=== PATIENT | female | born 1985 | race Caucasian/White ===

== ENCOUNTER 2022-03-10 18:58 | Emergency (ER) | payer BC, OTHER ==
--- OUTSIDE RECORDS SUMMARY | 2022-03-10 19:01 | XMS REPORT | Continuity of Care Document ---
:1985 Author Organization [facility] t Address [address] [place] [address] Care Team Providers Name Role Phone Jessica HERMOSILLO Attending Clinician Unavailable Payers Payer Name Policy Type Policy Number Effective Date Expiration Date S [place] [employer] 6 [id number] 2021 Common Spiri t Blue Shield 00:00:00 [facility] AETNA [id number] [facility] TML GBRP C1 [id number] 2019 Common Spiri t CLAIMS 00:00:00 [facility] Problems Condition Condition Condition Status Onset Resolution Last Treating Co mments Source Name Details Category Date Date Treatment Clinician Date [id number] Menorrhagi Problem Co mmon a with Spirit irregular - [facility]I cycle [facility] Anxiety Anxiety Problem Common Spirit [facility] Current Current Problem Common every day every day Spir it smoker smoker - [facility] Depression Depression Problem C ommon Spirit [facility] Chest pain Chest pain Problem C mon Spirit - [facility] [id number] Depression Problem Co mmon with Spirit anxiety - [facility] Gastroesop GERD Problem Commo n hageal (gastroeso Spirit reflux phageal - CHI disease reflux St disease) [facility] [id number] Encounter Problem Com mon for Spirit tobacco - [facility]I use [facility] Chronic Chronic Problem Common fatigue fatigue Spirit syndrome - [facility] [id number] Primary Problem Common insomnia [facility] Chronic Other Problem Common pain chronic [facility] pain [facility] [id number] Cigarette Problem Comm on nicotine Spirit dependence - [facility] Sciatica Lumbago Problem Common with Spirit sciatica, - [facility]I left side [facility] [id number] Iron Problem Common deficiency [facility] Vitamin D Vitamin D Problem Com mon deficiency deficiency Sp miller [facility] Elevated Elevated Problem Commo n liver liver Spirit enzymes enzymes - [facility] level [facility] Seasonal Seasonal Problem Commo n allergic allergic Spirit rhinitis rhinitis, - [facility]I unspecifie [facility] Allergic Allergic Problem Commo n rhinitis rhinitis, Spiri t cause - CHI unspecifie [facility] [id number] Menorrhagi Problem Co mmon a with Spirit regular - [facility] cycle [facility] Allergies, Adverse Reactions, Alerts Allergy Allergy Status Severity Reaction(s) Onset Inactive Treating Comm ents Source Name Type Date Date Clinician trazodon trazodon Active Unknown Commo n e e [facility] Social History Social Habit Start Date Stop Date Quantity Comments Source History of Tobacco Use Co mmon [facility] Sex Assigned At Com [facility] Smoking Status Start Date Stop Date Source Never Smoker Common [facility] Current Smoker 2020-11-13 00:00:[address] [facility] Medications Ordered Filled Start Stop Current Ordering Indication Dosage Frequency Signature Comments Components Source Medication Medication Date Date Medication? Clinician (SIG) Name Name Josy Ferris 2020- No [place] 1 tablet Com 08-27 Spirit 00:00: 00:00 - CHI 00 :00 [facility] Loratadine Loratadine 2020-0 No 1{table QD Loratadine 10 MG 10 MG 02-15 t} 10 MG 00:00: 00 Loratadine Loratadine 2019-0 No 1{table QD Loratadine 10 MG 10 MG 02-15 t} 10 MG 00:00: 00 Loratadine Loratadine 2019-0 No 1{table QD Loratadine 10 MG 10 MG 02-15 t} 10 MG 00:00: 00 Loratadine Loratadine 2020-0 No 1{table QD Loratadine 10 MG 10 MG 02-15 t} 10 MG 00:00: 00 Loratadine Loratadine 2019-0 No 1{table QD Loratadine 10 MG 10 MG 02-15 t} 10 MG 00:00: 00 Loratadine Loratadine 2019-0 No 1{table QD Loratadine 10 MG 10 MG 02-15 t} 10 MG 00:00: 00 Loratadine Loratadine 2019-0 No 1{table QD Loratadine 10 MG 10 MG 02-15 t} 10 MG 00:00: 00 Loratadine Loratadine 2019-0 No 1{table QD Loratadine 10 MG 10 MG 02-15 t} 10 MG 00:00: 00 Loratadine Loratadine 2019-0 No 1{table QD Loratadine 10 MG 10 MG 02-15 t} 10 MG 00:00: 00 Loratadine Loratadine 2019-0 2020- No [place] 1 tablet Common 02-15 Spirit 00:00: 00:00 - [facility]I 00 :00 [facility] Flonase Flonase 2019- Yes Na [place] 2 spray in Common 0-04 each Spirit 00:00: nostril - CHI 00 [facility] Amoxicillin Amoxicillin Yes Na [place] 1 capsule Common [facility] Ferrous Ferrous Yes Na [place] 2 tablet Co mmon Sulfate Sulfate [facility] Pantoprazol Pantoprazol Yes Na [place] 1 tablet Common e Sodium e Sodium [facility] Lexapro Lexapro Yes Na [place] 1 tablet Co mmon [facility] PredniSONE PredniSONE Yes Na [place] 2 tablets Common dailyx 5 [facility] days then [facility] [address] daily x 5 [facility] Lexapro Lexapro Yes Na [place] 1 tablet Co mmon [facility] Pantoprazol Pantoprazol Yes Na [place] 1 tablet Common e Sodium e Sodium [facility] Pantoprazol Pantoprazol No 1{table QD Pantoprazo e Sodium 20 e Sodium 20 t} le Sodium 20 Cetirizine Cetirizine No 1{table QD Cetirizine HCl 10 MG HCl 10 MG t} HCl 10 MG Amoxicillin Amoxicillin No 1{capsu BID Amoxicilli 500 MG 500 MG le} n 500 MG Pantoprazol Pantoprazol No 1{table QD Pantoprazo e Sodium 40 e Sodium 40 t} le Sodium MG MG 40 MG predniSONE predniSONE No predniSONE 20 MG 20 MG 20 MG Lexapro 5 Lexapro 5 No 1{table QD Lexapro 5 MG MG t} MG Blisovi FE Blisovi FE No 1{table QD Blisovi FE 02/26-02/26 1-20 t} 02/26 1-20 MG-MCG MG-MCG MG-MCG Flonase 50 Flonase 50 No 2{spray QD Flonase 50 MCG/ACT MCG/ACT _in_eac MCG/ACT h_nostr il} Lexapro 10 Lexapro 10 No 1{table QD Lexapro 10 MG MG t} MG Pantoprazol Pantoprazol No 1{table QD Pantoprazo e Sodium 20 e Sodium 20 t} le Sodium 20 Flonase 50 Flonase 50 No 2{spray QD Flonase 50 MCG/ACT MCG/ACT _in_eac MCG/ACT h_nostr il} Amoxicillin Amoxicillin No 1{capsu BID Amoxicilli 500 MG 500 MG le} n 500 MG Lexapro 10 Lexapro 10 No 1{table QD Lexapro 10 MG MG t} MG Pantoprazol Pantoprazol No 1{table QD Pantoprazo e Sodium 40 e Sodium 40 t} le Sodium MG MG 40 MG Cetirizine Cetirizine No 1{table QD Cetirizine HCl 10 MG HCl 10 MG t} HCl 10 MG Blisovi FE Blisovi FE No 1{table QD Blisovi FE 02/26-02/26 1-20 t} 02/26 1-20 MG-MCG MG-MCG MG-MCG predniSONE predniSONE No predniSONE 20 MG 20 MG 20 MG Lexapro 5 Lexapro 5 No 1{table QD Lexapro 5 MG MG t} MG Pantoprazol Pantoprazol No 1{table QD Pantoprazo e Sodium 20 e Sodium 20 t} le Sodium 20 Flonase 50 Flonase 50 No 2{spray QD Flonase 50 MCG/ACT MCG/ACT _in_eac MCG/ACT h_nostr il} Amoxicillin Amoxicillin No 1{capsu BID Amoxicilli 500 MG 500 MG le} n 500 MG Lexapro 10 Lexapro 10 No 1{table QD Lexapro 10 MG MG t} MG Pantoprazol Pantoprazol No 1{table QD Pantoprazo e Sodium 40 e Sodium 40 t} le Sodium MG MG 40 MG Cetirizine Cetirizine No 1{table QD Cetirizine HCl 10 MG HCl 10 MG t} HCl 10 MG Blisovi FE Blisovi FE No 1{table QD Blisovi FE 02/26-02/26 1-20 t} 02/26 1-20 MG-MCG MG-MCG MG-MCG predniSONE predniSONE No predniSONE 20 MG 20 MG 20 MG Lexapro 5 Lexapro 5 No 1{table QD Lexapro 5 MG MG t} MG Pantoprazol Pantoprazol No 1{table QD Pantoprazo e Sodium 40 e Sodium 40 t} le Sodium MG MG 40 MG Lexapro 5 Lexapro 5 No 1{table QD Lexapro 5 MG MG t} MG Pantoprazol Pantoprazol No 1{table QD Pantoprazo e Sodium 20 e Sodium 20 t} le Sodium 20 predniSONE predniSONE No predniSONE 20 MG 20 MG 20 MG Amoxicillin Amoxicillin No 1{capsu BID Amoxicilli 500 MG 500 MG le} n 500 MG Blisovi FE Blisovi FE No 1{table QD Blisovi FE 02/26-20 02/26 1-20 t} 02/26 1-20 MG-MCG MG-MCG MG-MCG Flonase 50 Flonase 50 No 2{spray QD Flonase 50 MCG/ACT MCG/ACT _in_eac MCG/ACT h_nostr il} Cetirizine Cetirizine No 1{table QD Cetirizine HCl 10 MG HCl 10 MG t} HCl 10 MG Lexapro 10 Lexapro 10 No 1{table QD Lexapro 10 MG MG t} MG Pantoprazol Pantoprazol No 1{table QD Pantoprazo e Sodium 20 e Sodium 20 t} le Sodium 20 Cetirizine Cetirizine No 1{table QD Cetirizine HCl 10 MG HCl 10 MG t} HCl 10 MG Flonase 50 Flonase 50 No 2{spray QD Flonase 50 MCG/ACT MCG/ACT _in_eac MCG/ACT h_nostr il} Amoxicillin Amoxicillin No 1{capsu BID Amoxicilli 500 MG 500 MG le} n 500 MG Lexapro 10 Lexapro 10 No 1{table QD Lexapro 10 MG MG t} MG Pantoprazol Pantoprazol No 1{table QD Pantoprazo e Sodium 40 e Sodium 40 t} le Sodium MG MG 40 MG Blisovi FE Blisovi FE No 1{table QD Blisovi FE 02/26-02/26 1-20 t} 02/26 1-20 MG-MCG MG-MCG MG-MCG predniSONE predniSONE No predniSONE 20 MG 20 MG 20 MG Lexapro 5 Lexapro 5 No 1{table QD Lexapro 5 MG MG t} MG Lexapro 10 Lexapro 10 No 1{table QD Lexapro 10 MG MG t} MG Flonase 50 Flonase 50 No 2{spray QD Flonase 50 MCG/ACT MCG/ACT _in_eac MCG/ACT h_nostr il} Amoxicillin Amoxicillin No 1{capsu BID Amoxicilli 500 MG 500 MG le} n 500 MG Pantoprazol Pantoprazol No 1{table QD Pantoprazo e Sodium 40 e Sodium 40 t} le Sodium MG MG 40 MG Cetirizine Cetirizine No 1{table QD Cetirizine HCl 10 MG HCl 10 MG t} HCl 10 MG Lexapro 5 Lexapro 5 No 1{table QD Lexapro 5 MG MG t} MG Pantoprazol Pantoprazol No 1{table QD Pantoprazo e Sodium 20 e Sodium 20 t} le Sodium 20 Blisovi FE Blisovi FE No 1{table QD Blisovi FE 02/26-02/26 1-20 t} 02/26 1-20 MG-MCG MG-MCG MG-MCG predniSONE predniSONE No predniSONE 20 MG 20 MG 20 MG Cetirizine Cetirizine No 1{table QD Cetirizine HCl 10 MG HCl 10 MG t} HCl 10 MG Amoxicillin Amoxicillin No 1{capsu BID Amoxicilli 500 MG 500 MG le} n 500 MG Lexapro 10 Lexapro 10 No 1{table QD Lexapro 10 MG MG t} MG Pantoprazol Pantoprazol No 1{table QD Pantoprazo e Sodium 40 e Sodium 40 t} le Sodium MG MG 40 MG predniSONE predniSONE No predniSONE 20 MG 20 MG 20 MG Flonase 50 Flonase 50 No 2{spray QD Flonase 50 MCG/ACT MCG/ACT _in_eac MCG/ACT h_nostr il} Lexapro 5 Lexapro 5 No 1{table QD Lexapro 5 MG MG t} MG Pantoprazol Pantoprazol No 1{table QD Pantoprazo e Sodium 20 e Sodium 20 t} le Sodium 20 Blisovi FE Blisovi FE No 1{table QD Blisovi FE 02/26-02/26 1-20 t} 02/26 1-20 MG-MCG MG-MCG MG-MCG Pantoprazol Pantoprazol No 1{table QD Pantoprazo e Sodium 20 e Sodium 20 t} le Sodium 20 Lexapro 10 Lexapro 10 No 1{table QD Lexapro 10 MG MG t} MG Pantoprazol Pantoprazol No 1{table QD Pantoprazo e Sodium 40 e Sodium 40 t} le Sodium MG MG 40 MG Ferrous Ferrous No 2{table QD Ferrous Sulfate 325 Sulfate 325 t} Sulfate (65 Fe) MG (65 Fe) MG 325 (65 Fe) MG predniSONE predniSONE No predniSONE 20 MG 20 MG 20 MG Cetirizine Cetirizine No 1{table QD Cetirizine HCl 10 MG HCl 10 MG t} HCl 10 MG Lexapro 5 Lexapro 5 No 1{table QD Lexapro 5 MG MG t} MG Flonase 50 Flonase 50 No 2{spray QD Flonase 50 MCG/ACT MCG/ACT _in_eac MCG/ACT h_nostr il} Amoxicillin Amoxicillin No 1{capsu BID Amoxicilli 500 MG 500 MG le} n 500 MG Pantoprazol Pantoprazol No 1{table QD Pantoprazo e Sodium 40 e Sodium 40 t} le Sodium MG MG 40 MG Blisovi FE Blisovi FE No 1{table QD Blisovi FE 02/26-02/26 1-20 t} 02/26 1-20 MG-MCG MG-MCG MG-MCG Flonase 50 Flonase 50 No 2{spray QD Flonase 50 MCG/ACT MCG/ACT _in_eac MCG/ACT h_nostr il} Lexapro 5 Lexapro 5 No 1{table QD Lexapro 5 MG MG t} MG Lexapro 10 Lexapro 10 No 1{table QD Lexapro 10 MG MG t} MG predniSONE predniSONE No predniSONE 20 MG 20 MG 20 MG Pantoprazol Pantoprazol No 1{table QD Pantoprazo e Sodium 20 e Sodium 20 t} le Sodium 20 Amoxicillin Amoxicillin No 1{capsu BID Amoxicilli 500 MG 500 MG le} n 500 MG Cetirizine Cetirizine No 1{table QD Cetirizine HCl 10 MG HCl 10 MG t} HCl 10 MG Vital Signs Vital Name Observation Time Observation Value Comments Source height 2021-11-11 10:00:00 66 [in_i] Common S pirit - [facility] enter weight 2021-11-11 10:00:00 140 [lb_av] Common S pirit - [facility] enter bmi 2021-11-11 10:00:00 22.59 kg/m2 Common S pirit - [facility] enter height 2021-08-12 08:20:00 66 [in_i] Common S pirit - [facility] C enter weight 2021-08-12 08:20:00 140 [lb_av] Common S pirit - [facility] enter bmi 2021-08-12 08:20:00 22.59 kg/m2 Common S pirit - [facility] enter height 2021-05-14 16:20:00 66 [in_i] Common S pirit - [facility] enter weight 2021-05-14 16:20:00 145 [lb_av] Common S pirit - [facility] C enter bmi 2021-05-14 16:20:00 23.4 kg/m2 Common S pirit - [facility] enter height 2020-11-07 11:20:00 66 [in_i] Common S pirit - [facility] C enter weight 2020-11-07 11:20:00 145 [lb_av] Common S pirit - [facility] C enter bmi 2020-11-07 11:20:00 23.4 kg/m2 Common S pirit - [facility] C enter Procedures This patient has no known procedures. Encounters Start End Encounter Admission Attending Care Care Encounter Source Date/Time Date/Time Type Type Clinicians Facility Department ID 2022-02-16 Outpatient Jessica HERMOSILLO [facility] [id number] 2 Common 12:24:00 [id number] [facility] 2021-11-09 Outpatient [place], Na STLMLC STLMLC [id number] 2 Common 14:16:00 [facility] 2021-05-08 Outpatient [place], Na STLMLC STLMLC [id number] 2 Common 07:17:00 [facility] 2021-03-04 Outpatient [place], Na STLMLC STLMLC [id number] 2 Common 14:30:05 [facility] 2021-03-04 Outpatient [place], Na STLMLC STLMLC [id number] 2 Common 14:29:41 [facility] 2021-03-04 Outpatient [place], Na STLMLC STLMLC [id number] 2 Common 14:29:07 [id number] [facility] 2021-03-04 Outpatient [place], Na STLMLC STLMLC [id number] 2 Common 13:55:49 [id number] [facility] 2021-03-04 Outpatient [place], Na STLMLC STLMLC [id number] 2 Common 13:55:23 [id number] [facility] 2021-03-04 Outpatient [place], Na STLMLC STLMLC [id number] 2 Common 13:54:44 [id number] [facility] 2021-03-04 Outpatient [place], Na STLMLC STLMLC [id number] 2 Common 12:47:07 [id number] [facility] 2021-03-04 Outpatient [place], Na STLMLC STLMLC [id number] 2 Common 12:27:25 [id number] [facility] 2021-03-04 Outpatient [place], Na STLMLC STLMLC [id number] 2 Common 12:18:56 [id number] [facility] 2021-03-04 Outpatient [place], Na STLMLC STLMLC [id number] 2 Common 11:53:28 [id number] [facility] 2021-03-04 Outpatient [place], Na STLMLC STLMLC [id number] 2 Common 11:52:47 [id number] [facility] 2021-03-04 Outpatient [place], Na STLMLC STLMLC [id number] 2 Common 11:30:26 [id number] [facility] 2021-03-04 Outpatient [place], Na STLMLC STLMLC [id number] 2 Common 11:17:41 [id number] [facility] 2021-03-04 Outpatient [place], Na STLMLC STLMLC [id number] 2 Common 11:17:37 [id number] [facility] 2021-03-04 Outpatient [place], Na STLMLC STLMLC [id number] 2 Common 11:17:22 [id number] [facility] 2021-03-04 Outpatient [place], Na STLMLC STLMLC [id number] 2 Common 11:17:09 [id number] [facility] 2021-03-04 Outpatient [place], Na STLMLC STLMLC [id number] 2 Common 10:59:29 [id number] [facility] 2021-03-04 Outpatient [place], Na STLMLC STLMLC [id number] 2 Common 10:59:04 [id number] [facility] 2022-02-16 2022-02-16 (TEL) STLMLC STLMLC [id number] Co mmon 00:00:00 00:00:00 [facility] 2021-11-11 2021-11-11 OFFICE STLMLC STLMLC [id number] Co mmon 00:00:00 00:00:00 VISIT EST Spir it PT LEVEL 3 [facility] 2021-08-12 2021-08-12 OFFICE STLMLC STLMLC [id number] Co mmon 00:00:00 00:00:00 VISIT EST Spir it PT LEVEL 3 [facility] 2021-05-14 2021-05-14 OFFICE STLMLC STLMLC [id number] Co mmon 00:00:00 00:00:00 VISIT EST Spir it PT LEVEL 3 [facility] 2021-03-17 2021-03-17 (TEL) STLMLC STLMLC [id number] Co mmon 00:00:00 00:00:00 [facility] 2021-02-16 2021-02-16 (TEL) STLMLC STLMLC [id number] Co mmon 00:00:00 00:00:00 [facility] 2021-02-09 2021-02-09 OFFICE STLMLC STLMLC [id number] Co mmon 00:00:00 00:00:00 VISIT EST Spir it PT LEVEL 3 - [facility] 2020-11-07 2020-11-07 OFFICE STLMLC STLMLC [id number] Co mmon 00:00:00 00:00:00 VISIT Spirit ESTAB PT - [facility]I LEVEL 4 [facility] 2020-08-09 2020-08-09 (TEL) STLMLC STLMLC [id number] Co mmon 00:00:00 00:00:00 [facility] 2020-08-08 2020-08-08 Outpatient STLMLC STLMLC [id number] Common 00:00:00 00:00:00 [facility] 2020-05-14 2020-05-14 Outpatient STLMLC STLMLC [id number] Common 00:00:00 00:00:00 [facility] 2020-05-09 2020-05-09 Outpatient STLMLC STLMLC [id number] Common 00:00:00 00:00:00 [facility] 2020-02-18 2020-02-18 Outpatient STLMLC STLMLC [id number] Common 00:00:00 00:00:00 [facility] 2020-02-18 2020-02-18 Outpatient STLMLC STLMLC [id number] Common 00:00:00 00:00:00 [facility] 2019-11-16 2019-11-16 Outpatient STLMLC STLMLC [id number] Common 00:00:00 00:00:00 [facility] 2019-09-01 2019-09-01 [id number] Common 18:54:00 18:54:00 [facility] [address] [facility] 2019-08-28 2019-08-28 [facility] [id number] Common 14:30:00 14:30:[address] [facility] 2019-08-16 2019-08-16 [facility] [id number] Common 14:40:00 14:40:[address] [facility] 2019-05-17 2019-05-17 [facility] [id number] Common 14:20:00 14:20:[address] [facility] 2019-02-15 2019-02-15 [facility] [id number] Common 16:20:00 16:20:[address] [facility] 2018-12-14 2018-12-14 [facility] [id number] Common 14:40:00 14:40:[address] [facility] 2018-12-05 2018-12-05 [facility] [id number] Common 09:55:00 09:55:[address] [facility] 2018-11-10 2018-11-10 [facility] [id number] Common 14:40:00 14:40:[address] [facility] 2018-04-11 2018-04-11 [facility] [id number] Common 16:30:00 16:30:[address] [facility] 2018-04-11 2018-04-11 [facility] [id number] Common 10:39:00 10:39:[address] [facility] 2017-09-13 2017-09-13 [facility] [id number] Common 15:00:00 15:00:[address] [facility] 2017-06-27 2017-06-27 [facility] [id number] Common 15:30:00 15:30:[address] [facility] 2017-05-26 2017-05-26 Outpatient Lavonne De Los Santos [id number] Common 11:00:00 11:00:00 t [employer] [facility] [facility] Results This patient has no known results.
[2022-03-10 19:40] LABS: Absolute Lymphocytes (CBC) 0.8 K/uL (0.7-4.9); Hematocrit 40.7 % (36.0-45.0); Lymphocytes % 8.9 % (15.3-44.8); MCV 92.6 fL (80-100); MPV 7.5 fL (7.6-11.3)
[2022-03-10] MEDS ORDERED: NA CHLORIDE 0.9% 1,000 ML ONE (19:47)
[2022-03-10 20:02] LABS: Albumin 3.6 g/dL (3.4-5.0); Bilirubin Total 0.4 mg/dL (0.2-1.0); Potassium 3.6 mmol/L (3.5-5.1); Protein, Total 7.4 g/dL (6.4-8.2); Troponin High Sensitivity 17.1 pg/mL (<58.9)
--- NOTE | 2022-03-10 20:25 | RAD REPORT ---
EXAM DESCRIPTION: Rufus Single View03/10/2022 8:00 pm CLINICAL HISTORY: Syncope COMPARISON: none FINDINGS: Entire lateral costophrenic sulci are not included in the field of view and are not evalua amos. The visualized lungs appear clear of acute infiltrate. The heart is normal size IMPRESSION: No acute abnormalities displayed
--- NOTE | 2022-03-10 20:38 | ER ---
Nurse's Notes [facility] Name: Josie Lock Age: 36 yrs Sex: Female : 1985 Arrival Date: 03/10/2022 Time: 19:03 Bed 4 Private MD: Diagnosis: Vasovagal Syncope - Family history:: not pertinent. Screenin/01 21:13 [facility] ED Fall Risk Assessment (Adult) History of falling in the last 3 months, kl including since admission No falls in past 3 months (0 pts) Confusion or Disorientation No (0 pts) Intoxicated or Sedated No (0 pts) Impaired Gait No (0 pts) Mobility Assist Device Used No (0 pt) Altered Elimination No (0 pt) Score/Fall Risk Level 0 - 2 = Low Risk Oriented to surroundings, Maintained a safe environment. Abuse screen: Denies threats or abuse. Nutritional screening: No deficits noted. Tuberculosis screening: No symptoms or risk factors identified. Assessment: 20:45 General: Appears in no apparent distress. comfortable, Behavior is calm, cooperative, kl appropriate for age. Pain: Denies pain. Cardiovascular: No deficits noted. Rhythm is sinus rhythm. Vital Signs: 19:15 BP 133 / 87; Pulse 120; Resp 19; Temp 98.2; Pulse Ox 100% on R/A; Weight 63.5 kg; rv1 Height 5 ft. 6 in. (167.64 cm); Pain 0/10; 20:53 BP 128 / 72; Pulse 95; Resp 16; Pulse Ox 99% on R/A; kl 19:15 Body Mass Index 22.60 (63.50 kg, 167.64 cm) rv1 ED Course: 19:03 Patient arrived in ED. ph 19:03 Julio Gage MD is Attending Physician. rt 19:31 D-Dimer Sent. rv1 19:31 Troponin High Sensitivity Sent. rv1 19:31 Test, Serum Sent. rv1 19:31 CMP Sent. rv1 19:31 CBC with Diff Sent. rv1 19:33 Mary Carmen French, CHANDA is Primary Nurse. eh3 20:02 Chest Single View XRAY In Process Unspecified. EDMS 21:13 Patient has correct armband on for positive identification. Client placed on continuous kl cardiac and pulse oximetry monitoring. NIBP monitoring applied. 21:14 No provider procedures requiring assistance completed. Maintain EMS IV. Dressing kl intact. Good blood return noted. Site clean \T\ dry. Gauge \T\ site: 20 left ac. IV discontinued, intact, bleeding controlled, No redness/swelling at site. Pressure dressing applied. Administered Medications: 19:41 Drug: NS 0.9% 1000 ml Route: IV; Rate: 1 bolus; Site: left antecubital; eh3 Outcome: 20:38 Discharge ordered by . rt 21:14 Discharged to home ambulatory. kl 21:14 Condition: stable 21:14 Discharge instructions given to patient, Instructed on discharge instructions, follow up and referral plans. Demonstrated understanding of instructions, follow-up care. 21:14 Patient left the ED. Signatures: Dispatcher [employer] EDCharito Neil RN RN kl Hall, Patricia, RN RN Manolo, CHANDA Lentz RN 3 Julio Gage MD MD rt Villegas, Rebecca 1
--- NOTE | 2022-03-10 20:38 | EDPHYS ---
Physician Documentation [facility] Name: Josie Lock Age: 36 yrs Sex: Female : 1985 Arrival Date: 03/10/2022 Time: 19:03 Bed 4 Private MD: ED Physician Julio Gage HPI: 03/10 19:47 This 36 yrs old Female presents to ER via Unassigned with complaints of Irregular Pulse.rt 19:47 The patient has experienced syncope, lost consciousness. Onset: The symptoms/episode rt began/occurred acutely, 2 hour(s) ago. Duration: This was a single episode. Associated injury: The patient did not suffer any apparent associated injury. Associated signs and symptoms: Pertinent positives: Irregular pulse. Current symptoms: Currently, the patient is not experiencing any symptoms. - Family history:: not pertinent. ROS: 19:47 Constitutional: Negative for fever, chills, and weight loss, Eyes: Negative for injury, rt pain, redness, and discharge, ENT: Negative for injury, pain, and discharge, Respiratory: Negative for shortness of breath, cough, wheezing, and pleuritic chest pain, MS/Extremity: Negative for injury and deformity, Skin: Negative for injury, rash, and discoloration, Psych: Negative for depression, anxiety, suicide ideation, homicidal ideation, and hallucinations. 19:47 Cardiovascular: Positive for palpitations, Negative for chest pain. 19:47 Respiratory: Positive for 19:47 Neuro: Positive for syncope, Negative for altered mental status. Exam: 19:47 Constitutional: This is a well developed, well nourished patient who is awake, alert, rt and in no acute distress. Head/Face: Normocephalic, atraumatic. Neck: Trachea midline, no thyromegaly or masses palpated, and no cervical lymphadenopathy. Supple, full range of motion without nuchal rigidity, or vertebral point tenderness. No Meningismus. Chest/axilla: Normal chest wall appearance and motion. Nontender with no deformity. No lesions are appreciated. Cardiovascular: Regular rate and rhythm with a normal S1 and S2. No gallops, murmurs, or rubs. Normal PMI, no JVD. No pulse deficits. Respiratory: Lungs have equal breath sounds bilaterally, clear to auscultation and percussion. No rales, rhonchi or wheezes noted. No increased work of breathing, no retractions or nasal flaring. Abdomen/GI: Soft, non-tender, with normal bowel sounds. No distension or tympany. No guarding or rebound. No evidence of tenderness throughout. Skin: Warm, dry with normal turgor. Normal color with no rashes, no lesions, and no evidence of cellulitis. MS/ Extremity: Pulses equal, no cyanosis. Neurovascular intact. Full, normal range of motion. Neuro: Awake and alert, GCS 15, oriented to person, place, time, and situation. Cranial nerves II-XII grossly intact. Motor strength 5/5 in all extremities. Sensory grossly intact. Cerebellar exam normal. Normal gait. Psych: Awake, alert, with orientation to person, place and time. Behavior, mood, and affect are within normal limits. 19:47 ECG was reviewed by the Attending Physician. Vital Signs: 19:15 BP 133 / 87; Pulse 120; Resp 19; Temp 98.2; Pulse Ox 100% on R/A; Weight 63.5 kg; rv1 Height 5 ft. 6 in. (167.64 cm); Pain 0/10; 20:53 BP 128 / 72; Pulse 95; Resp 16; Pulse Ox 99% on R/A; kl 19:15 Body Mass Index 22.60 (63.50 kg, 167.64 cm) rv1 MDM: 19:12 Patient medically screened. rt 20:38 Differential Diagnosis: cardiac arrhythmia, idiopathic syncope, vasovagal episode. Data rt reviewed: vital signs, nurses notes. I considered the following discharge prescriptions or medication management in the emergency department Medications were administered in the Emergency Department. See MAR. Independent interpretation of the following test(s) in the Emergency Department X-Ray: My interpretation is No consolidation. 20:39 Test considered but Not performed: CT: D-dimer negative, CT scan not indicated. rt Counseling: I had a detailed discussion with the patient and/or guardian regarding: the need for outpatient follow up, a family practitioner. Response to treatment: the patient's symptoms have resolved after treatment. 03/10 19:18 Order name: CBC with Diff; Complete Time: 20:13 rt 03/10 19:18 Order name: CMP; Complete Time: 20:13 rt 03/10 19:18 Order name: Troponin High Sensitivity; Complete Time: 20:13 rt 03/10 19:18 Order name: Test, Serum; Complete Time: 20:13 rt 03/10 19:18 Order name: D-Dimer; Complete Time: 20:13 rt 03/10 19:18 Order name: Chest Single View XRAY; Complete Time: 20:29 rt 03/10 19:18 Order name: EKG; Complete Time: 19:19 rt 02 19:18 Order name: EKG - Nurse/Tech; Complete Time: 19:31 rt EC:47 Rate is 97 beats/min. Rhythm is regular, Normal Sinus Rhythm with No ectopy. QRS [place] rt is Normal. MD interval is normal. QRS interval is normal. QT interval is normal. No Q waves. T waves are Normal. No ST changes noted. Interpreted by me. Administered Medications: 19:41 Drug: NS 0.9% 1000 ml Route: IV; Rate: 1 bolus; Site: left antecubital; 3 Disposition Summary: 03/10/22 20:38 Discharge Ordered Location: Home rt Problem: new rt Symptoms: are resolved rt Condition: Stable rt Diagnosis - Vasovagal Syncope rt Followup: rt - With: Private Physician - When: 2 - 3 days - Reason: Discharge Instructions: - Discharge Summary Sheet rt - Syncope rt Forms: - Medication Reconciliation Form rt - Thank You Letter rt - Antibiotic Education rt - Work release form rt - Prescription Opioid Use rt Signatures: Dispatcher [employer] Mary Carmen Arellano, RN RN eh3 Julio Gage MD MD rt
[2022-03-10 21:26] VITALS: TEMP 98.2
[2022-03-10 21:27] VITALS: BP 128/72; O2SAT 99
== END 2022-03-10 21:14 | disposition home or self-care (01) ==
LOC: ER 18:58
DX: R55 Syncope and collapse (principal); R00.2 Palpitations
CPT/HCPCS: 85025; 36415; 84703; 85379; 84484; 80053; 71045; J7030; 93005